=== PATIENT | female | born 1955 | race Caucasian/White ===

== ENCOUNTER 2017-07-23 06:31 | Emergency (ER) | payer SELFPAY ==
[~2017-07-23] VITALS: Ht 162.6 cm; Wt 90.0 kg
[2017-07-23 06:33] VITALS: BP 156/73; PULSE 106; RESP 16; TEMP 98.8; O2SAT 96
[2017-07-23 06:46] VITALS: BP 134/75; PULSE 90; TEMP 99
[2017-07-23 06:57] VITALS: BP 134/75
--- NOTE | 2017-07-23 07:37 | PD ---
HPI . Fever Chief Complaint: Fever Time Seen by Provider: 07:17 Travel History International Travel<30 days: No Contact w/Intl Traveler<30days: No Traveled to known affect area: No History of Present Illness HPI Patient presents with a three-day history of fever. MAXIMUM TEMPERATURE 103. Associated symptoms include headache, low back pain, nausea and vomiting and poor appetite. She has been taking Aleve and aspirin with good relief of her fever. She reports that her symptoms have been pretty continuous for the past 3 days. [facility] Past Medical History Medical History: Denies Significant Hx Patient Takes Glucophage: No Medical other: Yes (hysterectomy) Tetanus Vaccination: Never Vaccinated Influenza Vaccination: No ?: Not Past Surgical History Gynecologic Surgery: Yes (hysterectomy) Social History Alcohol Use: Yes Tobacco Use: No Substance Use: No Allergies-Medications (Allergen,Severity, Reaction): Coded Allergies: No Known Allergies (Verified Allergy, Unknown, 07/23/17) Reported Meds & Prescriptions Reported Meds & Active Scripts Active No Active Prescriptions or Reported Medications Review of Systems Except as stated in HPI: all other systems reviewed are Neg General / Constitutional: Positive: Fever, Chills Eyes: No: Blurred Vision, Drainage, Redness HENT: Positive: Headaches, No: Sore Throat, Rhinorrhea, Congestion, Neck Stiffness Cardiovascular: No: Chest Pain or Discomfort Respiratory: No: Cough, Shortness of Breath Gastrointestinal: Positive: Nausea, Vomiting, No: Diarrhea, Abdominal Pain Genitourinary: Positive: Flank Pain Physical Exam Narrative GENERAL: The patient is lying on the stretcher in no distress. SKIN: Warm and dry. HEAD: Atraumatic. Normocephalic. EYES: Pupils equal and round. ENT: No nasal bleeding or discharge. Mucous membranes pink and moist. Oropharynx has no erythema. NECK: Trachea midline. Neck is supple with no cervical lymphadenopathy. CARDIOVASCULAR: Regular rate and rhythm. Heart sounds are normal. RESPIRATORY: No accessory muscle use. Lungs are clear with full air movement throughout. GASTROINTESTINAL: Abdomen soft, non-tender, nondistended. MUSCULOSKELETAL: No obvious deformities. No edema. NEUROLOGICAL: Awake and alert. No obvious cranial nerve deficits. Motor grossly within normal limits. Normal speech. PSYCHIATRIC: Appropriate mood and affect; insight and judgment normal. Data Data Last Documented VS Vital Signs Date Time Temp Pulse Resp B/P (MAP) Pulse Ox O2 Delivery O2 Flow Rate FiO2 07/23/17 07:39 98.5 82 18 125/70 (88) 98 Room Air Orders Orders Complete Blood Count With Diff (07/23/17 07:26) Comprehensive Metabolic Panel (07/23/17 07:26) Lactic Acid Sepsis Protocol (07/23/17 07:26) Urinalysis - C+S If Indicated (07/23/17 07:26) Blood Culture (07/23/17 07:26) Chest, Single Ap (07/23/17 07:26) Iv Access Insert/Monitor (07/23/17 07:26) Urine Culture (07/23/17 07:55) Labs Laboratory Tests Test 07/23/17 07:50 07/23/17 07:55 White Blood Count 16.3 TH/MM3 Red Blood Count 4.06 MIL/MM3 Hemoglobin 12.9 GM/DL Hematocrit 38.2 % Mean Corpuscular Volume 94.3 FL Mean Corpuscular Hemoglobin 31.9 PG Mean Corpuscular Hemoglobin Concent 33.8 % Red Cell Distribution Width 12.8 % Platelet Count 223 TH/MM3 Mean Platelet Volume 6.8 FL Neutrophils (%) (Auto) 84.6 % Lymphocytes (%) (Auto) 5.7 % Monocytes (%) (Auto) 9.5 % Eosinophils (%) (Auto) 0.0 % Basophils (%) (Auto) 0.2 % Neutrophils # (Auto) 13.8 TH/MM3 Lymphocytes # (Auto) 0.9 TH/MM3 Monocytes # (Auto) 1.6 TH/MM3 Eosinophils # (Auto) 0.0 TH/MM3 Basophils # (Auto) 0.0 TH/MM3 CBC Comment DIFF FINAL Differential Comment Blood Urea Nitrogen 16 MG/DL Creatinine 1.29 MG/DL Random Glucose 131 MG/DL Total Protein 7.8 GM/DL Albumin 3.2 GM/DL Calcium Level 8.9 MG/DL Alkaline Phosphatase 88 U/L Aspartate Amino Transf (AST/SGOT) 16 U/L Alanine Aminotransferase (ALT/SGPT) 26 U/L Total Bilirubin 0.6 MG/DL Sodium Level 135 MEQ/L Potassium Level 3.6 MEQ/L Chloride Level 99 MEQ/L Carbon Dioxide Level 23.3 MEQ/L Anion Gap 13 MEQ/L Estimat Glomerular Filtration Rate 42 ML/MIN Lactic Acid Level 0.8 mmol/L Urine Color YELLOW Urine Turbidity HAZY Urine pH 5.5 Urine Specific [place] 1.007 Urine Protein TRACE mg/dL Urine Glucose (UA) NEG mg/dL Urine Ketones NEG mg/dL Urine Occult Blood TRACE Urine Nitrite NEG Urine Bilirubin NEG Urine Urobilinogen LESS THAN 2.0 MG/DL Urine Leukocyte Esterase SMALL Urine RBC 2 /hpf Urine WBC 9 /hpf Urine Squamous Epithelial Cells 2 /hpf Urine Bacteria MOD /hpf Urine Mucus FEW /lpf Microscopic Urinalysis Comment CATH-CULTURE IND MDM Medical Decision Making Medical Screen Exam Complete: Yes Emergency Medical Condition: Yes Medical Record Reviewed: Yes Differential Diagnosis Differential diagnosis of fever includes but is not limited to viral illness, strep throat, otitis media, pneumonia, sepsis, UTI Narrative Course This patient presents with a fever. Septic workup has been ordered. This patient does not appear ill at this time. CBC & BMP Diagram 07/23/17 07:50 Total Protein 7.8, Albumin 3.2 L, Calcium Level 8.9, Alkaline Phosphatase 88, Aspartate Amino Transf (AST/SGOT) 16, Alanine Aminotransferase (ALT/SGPT) 26, Total Bilirubin 0.6 Lactic acid level is normal. UA>>small LE, 9 WBC, mod bact I will give her a gram of Rocephin and then discharge her on Macrobid. Last Impressions Chest X-Ray 07/23/17 0726 Signed Impressions: Service Date/Time: Sunday, July 23, 2017 07:59 - CONCLUSION: No acute disease. Sam Carmona Jr., MD The chest x-ray was independently viewed by me. Diagnosis Primary Impression: Fever Qualified Codes: R50.9 - Fever, unspecified Additional Impression: Urinary tract infection Qualified Codes: N10 - Acute pyelonephritis Referrals: [facility] 1 week Patient Instructions: Fever in Adults (ED), General Instructions, Urinary Tract Infection in Women (DC) Med/Other Pt SpecificInfo: Prescription(s) given Scripts Nitrofurantoin Monohydrate Macrocrystals (Macrobid) 100 Mg Cap 100 MG PO BID for Infection for 7 Days, CAP 0 Refills Prov: Ritu Ryan MD 07/23/17 Disposition: 01 DISCHARGE HOME Condition: Stable Ritu Ryan MD Jul 23, 2017 07:37
[2017-07-23 07:39] VITALS: BP 125/70; PULSE 82; RESP 18; TEMP 98.5; O2SAT 98
[2017-07-23 08:04] LABS: AUTOMATED NEUTROPHIL # 13.8 TH/MM3 (1.8-7.7); BASOPHIL % 0.2 % (0.0-2.0); HEMATOCRIT 38.2 % (35.0-46.0); HEMO FLAGS DIFF FINAL; LYMPH % 5.7 % (9.0-44.0); LYMPHOCYTE # 0.9 TH/MM3 (1.0-4.8); MEAN CELL VOLUME 94.3 FL (80.0-100.0); MEAN CORPUSCULAR HEMOGLOBIN 31.9 PG (27.0-34.0); MEAN CORPUSCULAR HGB CONC 33.8 % (32.0-36.0); MONO % 9.5 % (0.0-8.0); NEUT % 84.6 % (16.0-70.0); PLATELET COUNT 223 TH/MM3 (150-450); RED BLOOD COUNT 4.06 MIL/MM3 (4.00-5.30); RED CELL DISTRIBUTION WIDTH 12.8 % (11.6-17.2); WHITE BLOOD COUNT 16.3 TH/MM3 (4.0-11.0)
[2017-07-23 08:17] LABS: ALT (GPT) 26 U/L (10-53); ANION GAP 13 MEQ/L (5-15); AST (GOT) 16 U/L (15-37); BICARBONATE 23.3 MEQ/L (21.0-32.0); BLOOD UREA NITROGEN 16 MG/DL (7-18); CHLORIDE 99 MEQ/L (98-107); GLOMERULAR FILTRATION RATE 42 ML/MIN (>89); POTASSIUM 3.6 MEQ/L (3.5-5.1); SODIUM (NA) 135 MEQ/L (136-145)
[2017-07-23 08:20] LABS: ALKALINE PHOSPHATASE 88 U/L (45-117); TOTAL BILIRUBIN ADULT 0.6 MG/DL (0.2-1.0)
[2017-07-23 08:25] LABS: BLOOD, URINE TRACE (NEG); GLUCOSE,URINE NEG (NEG); KETONE, URINE NEG (NEG); MUCUS URINE FEW /lpf (OCC); NITRITE,URINE NEG (NEG); PH, URINE 5.5 (5.0-8.5); SQUAMOUS EPITHELIAL CELL URINE 2 /hpf (0-5); URINE COLOR YELLOW (YELLW/STRAW)
[2017-07-23 08:29] LABS: BACTERIA, URINE MOD /hpf; COMMENT (UR) CATH-CULTURE IND; CULTURE IF INDICATED CATH CULTURE IND
--- NOTE | 2017-07-23 08:37 | RADRPT ---
EXAM DATE/TIME: 07/23/2017 07:59 [facility] COMPARISON: No previous studies available for comparison. INDICATIONS : Fever. Patient c/o back pain and body aches. MEDICAL HISTORY : None. SURGICAL HISTORY : None. ENCOUNTER: Initial ACUITY: 4 - 6 days PAIN SCORE: 0/10 LOCATION: Bilateral chest FINDINGS: A single view of the chest demonstrates the lungs to be symmetrically aerated without evidence of mas s, infiltrate or effusion. The cardiomediastinal contours are unremarkable. Osseous structures are intact. CONCLUSION: No acute disease. Sam Carmona Jr., MD on July 23, 2017 at 8:32 Board Certified Radiologist. This report was verified electronically.
[2017-07-23] MEDS ORDERED: MACR100C2 PO (08:56)
[2017-07-23] MEDS ORDERED: cefTRIAXone INJ 1,000 MG in SODIUM CHLORIDE 0.9% INJ 100 ML IV ONE (09:45)
[2017-07-23] MEDS ORDERED: ZOFR4TAB PO (11:00)
[2017-07-23] MEDS ORDERED: ONDANSETRON ODT 4 MG TAB PO ONE (11:00)
== END 2017-07-23 11:23 | disposition home or self-care (01) ==
LOC: NEPC 06:31
DX: R50.9 Fever, unspecified (principal); N39.0 Urinary tract infection, site not specified; B96.20 Unspecified Escherichia coli [E. coli] as the cause of diseases classified elsewhere; R51 Headache; R11.2 Nausea with vomiting, unspecified; M54.5 Low back pain
CPT/HCPCS: 71010; 80053; 81001; 83605; 85025; 87040; 87077; 87086; 87186; 87205; 96365; 99284; J0696

== ENCOUNTER 2017-07-28 07:54 | Emergency (ER) | payer SELFPAY ==
[~2017-07-28 07:54] MED LIST: MACR100C2 PO; ZOFR4TAB PO
[2017-07-28 07:56] VITALS: BP 174/85; PULSE 77; RESP 16; TEMP 98.8; O2SAT 97
[2017-07-28 08:07] VITALS: BP 173/79; PULSE 71; RESP 20; TEMP 98.8; O2SAT 98
[2017-07-28] MEDS ORDERED: cefTRIAXone INJ 2,000 MG in SODIUM CHLORIDE 0.9% INJ 100 ML IV ONE (08:15)
--- NOTE | 2017-07-28 08:24 | PD ---
HPI Chief Complaint: Abnormal Results Time Seen by Provider: 08:13 Travel History International Travel<30 days: No Contact w/Intl Traveler<30days: No Traveled to known affect area: No History of Present Illness HPI WAS CALLED AND TOLD THAT HER BLOOD CULTURE WAS ABNORMAL, STATES THAT SHE HAS BEEN TAKING HER MACROBID PRESCRIBED, STATES MILD MALAISE, NO N/V/D/CP/ABD PAIN/ PFSH Past Medical History Medical History: Denies Significant Hx Diminished Hearing: No Tetanus Vaccination: Unknown Past Surgical History Gynecologic Surgery: Yes (hysterectomy) Hysterectomy: Yes Social History Alcohol Use: Yes Tobacco Use: No Substance Use: No Allergies-Medications (Allergen,Severity, Reaction): Coded Allergies: No Known Allergies (Verified Allergy, Unknown, 07/28/17) Reported Meds & Prescriptions Reported Meds & Active Scripts Active Zofran (Ondansetron HCl) 4 Mg Tab 4 Mg PO Q6HR PRN Macrobid (Nitrofurantoin Monoh/Nitrofur Macro) 100 Mg Cap 100 Mg PO BID 7 Days Review of Systems Except as stated in HPI: all other systems reviewed are Neg General / Constitutional: Positive: Other (GEN WEAKNESS) Physical Exam Narrative GENERAL: SKIN: Warm and dry. HEAD: Atraumatic. Normocephalic. EYES: Pupils equal and round. No scleral icterus. No injection or drainage. ENT: No nasal bleeding or discharge. Mucous membranes pink and moist. NECK: Trachea midline. No JVD. CARDIOVASCULAR: Regular rate and rhythm. RESPIRATORY: No accessory muscle use. Clear to auscultation. Breath sounds equal bilaterally. GASTROINTESTINAL: Abdomen soft, non-tender, nondistended. Hepatic and splenic margins not palpable. MUSCULOSKELETAL: Extremities without clubbing, cyanosis, or edema. No obvious deformities. NEUROLOGICAL: Awake and alert. No obvious cranial nerve deficits. Motor grossly within normal limits. Five out of 5 muscle strength in the arms and legs. Normal speech. PSYCHIATRIC: Appropriate mood and affect; insight and judgment normal. Data Data Last Documented VS Vital Signs Date Time Temp Pulse Resp B/P (MAP) Pulse Ox O2 Delivery O2 Flow Rate FiO2 07/28/17 11:17 07/28/17 10:41 64 16 97 Room Air 07/28/17 08:07 98.8 Orders Orders Iv Access Insert/Monitor (07/28/17 08:13) Ceftriaxone Inj (Rocephin Inj) (07/28/17 08:15) Blood Culture (07/28/17 10:00) MDM Medical Decision Making Medical Screen Exam Complete: Yes Emergency Medical Condition: Yes Medical Record Reviewed: Yes Differential Diagnosis SEPSIS V BACTEREMIA V UTI Narrative Course PATIENT WAS NONTOXIC APEARING, WITHOUT RASH OR FEVER, GIVEN ROCEPHIN AND WAS NOTED TO HAVE RECEIVED IV ROCEPHIN PRIOR ON FIRST EVAL DATE. Diagnosis Primary Impression: UTI WITH BACTEREMIA Patient Instructions: General Instructions Additional Instructions: PLEASE FINISH YOUR ANTIBIOTIC PRESCRIBED, AND DO NOT HESITATE TO RETURN TO ED IF FEVERS RETURN Disposition: 01 DISCHARGE HOME Condition: Stable Levy Elliott MD Jul 28, 2017 08:24
[2017-07-28 10:41] VITALS: BP 170/100; PULSE 64; RESP 16; O2SAT 97
== END 2017-07-28 11:18 | disposition home or self-care (01) ==
LOC: NEPE 07:54
DX: R78.81 Bacteremia (principal); N39.0 Urinary tract infection, site not specified
CPT/HCPCS: 87040; 96365; 99284; J0696